=== PATIENT | male | born 1940 | race Caucasian/White ===

== ENCOUNTER 2016-08-31 14:44 | Observation (INO) | payer MEDICARE, OTHER ==
--- NOTE | ~2016-08-31 | OP ---
Record Of Operation [facility] [address] [place]. [address] NAME: SID PINEDA : 39 STATUS : DIS Aamir PAT#: [id number] AGE: 76 ADM/REG DATE : 08/31/16 MR#: [id number] REPORT SERV DATE: 09/01/16 DICTATED BY: DATE: REPORT STATUS : Draft TRANSCRIBED BY: MODL DATE: 09/01/16 DATE OF PROCEDURE: 09/01/2016 CHIEF COMPLAINT/REASON FOR STUDY: Atrial flutter. Written informed consent obtained. Please see chart for documentation. DESCRIPTION OF PROCEDURE: With the assistance of my Anesthesia colleagues, Mr. Pineda was sedated for the procedure. The transesophageal probe was placed with one attempt without complication. Saline 2D echocardiographic along with spectral and color Doppler images obtained. Following verification of no left atrial appendage thrombus, DC cardioversion was performed, 200 joules x1 with return to sinus rhythm. 1. Normal left ventricular systolic function with a visually estimated ejection fraction greater than 50%. 2. Normal right ventricular chamber size and systolic function. 3. Dilated left atrium without evidence of thrombus. 4. Dilated right atrium without evidence of thrombus. 5. The mitral valve appeared structurally normal. There was mild color flow evidence of mitral valve regurgitation. There was no evidence of mitral valve stenosis. 6. The tricuspid valve was structurally normal. There was mild tricuspid regurgitation. No evidence of tricuspid stenosis present. 7. The aortic valve was trileaflet, sclerotic, without evidence of significant . 8. The pulmonary valve was structurally normal with no evidence of regurgitation or stenosis. 9. The tricuspid valve leaflet was structurally normal with mild tricuspid regurgitation, and no evidence of stenosis present. 10.The left atrium was interrogated at multiple levels and depths. Doppler velocities were greater than 40 cm/second within the left atrial appendage. 11.There was no evidence of pericardial effusion. 12.The thoracic aorta was interrogated. There was severe atherosclerotic plaque noted in the thoracic aorta. IMPRESSION: Successful DC cardioversion. THUY/RADHA Laverne Velasco M.D. / [id number] CC: Kinsey Aparicio, MSN, VENTILATED RIB FITTER-BC OTTO LU
--- NOTE | ~2016-08-31 | HP ---
History And Physical [place] [id number] [facility] [place]. [address] NAME: SID LUX : 39 STATUS : ADM Aamir PAT#: [id number] AGE: 76 ADM/REG DATE : 08/31/16 MR#: [id number] REPORT SERV DATE: 08/31/16 DICTATED BY: DATE: REPORT STATUS : Draft TRANSCRIBED BY: MODRobe DATE: 08/31/16 DATE OF ADMISSION: 08/31/2016 PAPER GLUING OPERATOR: Dr. Dyer. INK TECHNICIAN: Dr. Webber. CHIEF COMPLAINT: Shortness of breath, weakness, and lightheadedness. HISTORY OF PRESENT ILLNESS: This is a very pleasant, 76-year-old, white male without any cardiac history including arrhythmias, who presents to the emergency room due to shortness of breath, weakness, and lightheadedness. The patient checked his pulse oximetry frequently and noticed that his heart rate was in the 150s at home. Therefore, because of all of his symptoms, he came into the emergency room. The patient denied any chest pain pressure, nausea, vomiting, diaphoresis, temperature, or any chills. The patient does state to have an extensive pulmonary history. He reports to have COPD, emphysema, and wear 4 L of oxygen via nasal cannula 09/10 at home. He also reports that he was on prednisone x1 week and he finished his dose on Sunday. He was taking it for wheezing. He reports that he has taken prednisone twice in the last two months along with Levaquin due to his respiratory issues. He denies any actual history of GI bleed. He does report to have had a very short run of nosebleed, last Sunday, he reports it was very minimal, but he did inform his nurse practitioner that works with Dr. Webber. The patient has also denied any palpitations. Currently, the patient denies any shortness of breath, chest pain, nausea, vomiting, or abdominal pain. He reports to feel a lot better since his heart rate has been beating a little slower. The patient denies any history of myocardial infarction, stroke, DVT, or pulmonary embolus. Also, the patient denies ever having an arrhythmia in the past. The patient denies any recent fevers or chills, palpitations, or syncopal episodes. He does state to have some orthopnea and sleeps with a BiPAP, but he reports he does not have sleep apnea. He just wears it due to his other multi-respiratory issues. PAST MEDICAL HISTORY: COPD, emphysema, hypertension, hyperlipidemia, diabetes, cholelithiasis, polyps, diverticulitis, anxiety. SURGICAL HISTORY: Appendectomy; inguinal hernia surgery; bilateral cataracts, the last one was about three weeks ago, which is left eye; vasectomy; and cholecystectomy. 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 He is and has three children. He used to smoke one and a half to two packs per day for 35 years. He quit in 1980. He reports to drink about two drinks of alcohol in a month occasionally. He denies any illicit drug use. FAMILY HISTORY: He denies any cardiac history for his mother or his father. REVIEW OF SYSTEMS: A 14-point review of systems was performed significant for HPI. No other contributory History And Physical [address] [address] NAME: SID LUX : 39 STATUS : ADM Aamir PAT#: [id number] AGE: 76 ADM/REG DATE : 08/31/16 MR#: [id number] REPORT SERV DATE: 08/31/16 DICTATED BY: DATE: REPORT STATUS : Draft TRANSCRIBED BY: MODRobe DATE: 08/31/16 diagnosis identified. ALLERGIES: NO KNOWN ALLERGIES. HOME MEDICATIONS: Lisinopril 5 mg p.o. every morning; Humulin R injection 15-18 units subcutaneously at bedtime; Glucophage 500 mg p.o. twice a day; Deltasone 20 mg p.o. daily x5 days, he reports the therapy was completed on 08/28/2016; ibuprofen 800 mg p.o. twice a day, p.r.n.; albuterol sulfate inhalation solution nebulizer, 3 mL inhalation four times a day p.r.n. shortness of breath and wheezing; ProAir HFA two puffs inhalation every 6 hours p.r.n.; Xanax 0.25-0.5 mg p.o. three times a day for anxiety; aspirin 81 mg p.o. twice a day; atorvastatin 10 mg p.o. at bedtime; Zithromax 250 mg p.o. daily on Sunday, Sunday, and Sunday, maintenance therapy; glucosamine chondroitin one tablet p.o. twice a day; Symbicort 160/4.5 inhaler, two puffs inhalation twice a day; multivitamin one tablet p.o. at bedtime; Ricky-Dur 200 mg p.o. twice a day; Spiriva Respimat 2.5 mcg per inhalation, one puff inhalation twice a day; Flomax 0.4 mg p.o. at bedtime; Flonase nasal spray 50 mcg per inhalation, one to two sprays nasally daily p.r.n.; sodium chloride [place] nasal spray, one to two sprays nasally at bedtime; sertraline 100 mg p.o. every morning; trazodone 50 mg p.o. at bedtime; triamterene/hydrochlorothiazide 37.5/25 one tablet p.o. every morning; testosterone 200 mg IM every 14 days, next injection due is 08/31/2016; Zovirax 5% ointment, one application topically daily p.r.n. PHYSICAL EXAMINATION: VITAL SIGNS: Blood pressure 103/67. Heart rate ranges from 70 to 120. Temperature 98.1. Respirations 16. O2 95% on 4 L nasal cannula. GENERAL: Cooperative, in no apparent distress. HEENT: Head normocephalic, anicteric. Normal EOM. PERRLA. No xanthelasma. Nares patent. Moist mucous membranes. NECK: Trachea midline. No thyromegaly, JVD or bruits. RESPIRATORY: Clear to auscultation bilaterally and coarse bases. CARDIOVASCULAR: Irregularly irregular. ABDOMEN: Soft, nontender, nondistended, normal bowel sounds auscultated throughout. No masses or organomegaly. EXTREMITIES: No peripheral edema. DP/PT and radial pulses palpable bilaterally. No clubbing or cyanosis. SKIN: Warm, dry and intact. Normal turgor. No pallor or cyanosis. NEURO/PSYCH: Alert, oriented x3 with no acute distress. Affect appropriate to current situation. DIAGNOSTIC DATA: Chest x-ray dated 08/31/2016 shows COPD changes in the lungs without acute cardiopulmonary abnormality identified. EKG on 08/31/2016 at 1333 shows atrial flutter at 150, left ventricular hypertrophy with QRS widening, QTc is 521. EKG on 08/31/2016 at 1355 shows atrial flutter at 102 with an incomplete right bundle branch block. commercial intelligence manager shows atrial flutter, ranging between 70-120 beats per minute. LABORATORY DATA: Sodium 139, potassium 4.8, BUN 29, creatinine 1.33, GFR 59. Glucose 96. Calcium 10.4, magnesium 2.0. White blood cells 12.2, hemoglobin 14.5, hematocrit 43.3, platelets 256. INR 1.0. Troponin 0.16. BNP 126. TSH 1.34. History And Physical [address] [address] NAME: SID LUX : 39 STATUS : ADM Aamir PAT#: [id number] AGE: 76 ADM/REG DATE : 08/31/16 MR#: [id number] REPORT SERV DATE: 08/31/16 DICTATED BY: DATE: REPORT STATUS : Draft TRANSCRIBED BY: MODL DATE: 08/31/16 ASSESSMENT AND PLAN: 1. New atrial flutter. CHADS-VASc score is 4. The patient reports to be feeling better due to the heart rate decreasing. The patient is on a Cardizem drip at 15 mg. We will keep the patient n.p.o. and order a BURT and a cardioversion for the morning. Also, the patient has been started on Eliquis downstairs at 10 mg x1 dose. We will start the patient on 5 mg p.o. twice a day. I have written prescriptions for that as well. The patient was instructed to report any sort of bleeding or dark tarry stools. After the BURT and cardioversion if the patient converts to sinus rhythm and recovers per BURT cardioversion protocol, discharge will be possible and the patient will be following up with his primary care provider in a week and also with space physicist, Dr. Dyer in three to four weeks. 2. Chronic obstructive pulmonary disease and emphysema. The patient reports that he wears 3.5 to 4 L at home. Recently, he was on prednisone and reports to feel better from that until he realized that his heart rate was going up and he had the increased shortness of breath at that time. The patient at this time reports to feel better with his breathing and symptom free with the lightheadedness and the weakness. 3. Hypertension. The patient's blood pressure appears to be stable at this time. We will continue to monitor. 4. Diabetes type 2. We will hold the patient's metformin along with the patient's home dose of any insulin and start the patient on a sliding scale level 1 while hospitalized. 5. Hyperlipidemia. The patient is on statin. 6. Anxiety. The patient does not appear to be anxious at this time. However, the patient does have Xanax on his home medication list which will be continued. EKS/MODL Gavin Go APN / [id number] CC: Kinsey Aparicio, MSN, DENTAL SERVICES DIRECTOR-OTTO LYMAN IV, M.D. James Marcum, M.D.
[2016-08-31 14:13] LABS: BASOPHILS 0.3 %; BASOPHILS ABSOLUTE 0.04 10/3/uL (0.0-0.16); EOSINOPHILS 3.9 %; EOSINOPHILS ABSOLUTE 0.47 10/3/uL (0.0-0.53); ER CBC TAT 0 Hrs 03 MinsN; HEMATOCRIT 43.3 % (40.0-51.0); HEMOGLOBIN 14.5 g/dL (13.6-17.8); IMMATURE GRANULOCYTES 0.5 %; IMMATURE GRANULOCYTES ABSOLUTE 0.06 10/3/uL (0.0-0.11); LYMPHOCYTES 11.2 %; LYMPHOCYTES ABSOLUTE 1.37 10/3/uL (0.67-4.30); MANUAL DIFF NO %; MEAN CORPUS HGB CONC 33.5 g/dL (32.0-36.0); MEAN CORPUSCULAR HEMOGLOB 30.8 pg (26.0-34.0); MEAN CORPUSCULAR VOLUME 91.9 fL (80-100); MEAN PLATELET VOLUME 9.2 fL (9.2-13.0); MONOCYTES 9.4 %; MONOCYTES ABSOLUTE 1.14 10/3/uL (0.21-1.20); NEUTROPHILS 74.7 %; NEUTROPHILS ABSOLUTE 9.11 10/3/uL (2.02-8.40); PLATELET COUNT 256 10/3/uL (150-400); RBC DISTRIBUTION WIDTH 13.6 % (12.0-16.0); RED CELL COUNT 4.71 10/6/uL (4.7-6.1); WHITE BLOOD CELLS 12.2 10/3/uL (4.5-10.5)
[2016-08-31 14:27] LABS: PARTIAL THROMBO TIME 28.6 SEC (22.5-37.2); PROTIME (NOT ORD) 12.7 SEC (12.0-14.5)
[2016-08-31 14:34] LABS: BUN (BLOOD UREA NITROGEN) 29 MG/DL (6-23); CALCIUM, SERUM 10.4 MG/DL (8.5-10.4); CHEST PAIN PROFILE TAT 0 Hrs 24 Mins; CHLORIDE, SERUM 102 MMOL/L (96-112); CO2 (CARBON DIOXIDE) 30 MMOL/L (24-34); CREATININE 1.33 MG/DL (0.70-1.30); GFR AFRICAN AMERICAN 59 ML/MIN (>=60); GFR NON AFRICAN AMERICAN 51 ML/MIN (>=60); GLUCOSE, SERUM 96 MG/DL (60-99); POTASSIUM, SERUM 4.8 MMOL/L (3.5-5.3); SODIUM, SERUM 139 MMOL/L (135-148); TROPONIN I 0.16 NG/ML (<0.05)
[2016-08-31] MEDS ORDERED: PRIN10 PO (15:22)
[2016-08-31] MEDS ORDERED: GLUCPH PO (15:24)
[2016-08-31] MEDS ORDERED: HUMULIN R1 ML SC (15:24)
[2016-08-31] MEDS ORDERED: P20 PO (15:25)
[2016-08-31] MEDS ORDERED: IBU800 PO (15:25)
[2016-08-31] MEDS ORDERED: PROAIR HFA INH (15:26)
[2016-08-31] MEDS ORDERED: ALBUTEROL0.083 % INH (15:26)
[2016-08-31] MEDS ORDERED: X25 PO (15:27)
[2016-08-31] MEDS ORDERED: LIPITOR10 PO (15:28)
[2016-08-31] MEDS ORDERED: ZITH250 PO (15:28)
[2016-08-31] MEDS ORDERED: HALF81 PO (15:28)
[2016-08-31] MEDS ORDERED: GLUCCHONDR PO (15:29)
[2016-08-31] MEDS ORDERED: PULRESP.5 INH (15:29)
[2016-08-31] MEDS ORDERED: MULTIVIT/MIN PO (15:29)
[2016-08-31] MEDS ORDERED: T200 PO (15:30)
[2016-08-31] MEDS ORDERED: SPIRIVA RESPIMAT INH (15:30)
[2016-08-31] MEDS ORDERED: FLOMAX4 PO (15:31)
[2016-08-31] MEDS ORDERED: FLONASE NAS (15:31)
[2016-08-31] MEDS ORDERED: OCEAN NAS (15:32)
[2016-08-31] MEDS ORDERED: ZOL100 PO (15:32)
[2016-08-31] MEDS ORDERED: MAX25 PO (15:33)
[2016-08-31] MEDS ORDERED: TRAZ100 PO (15:33)
[2016-08-31] MEDS ORDERED: TESTOSTERONE 200 MG IM (15:35)
[2016-08-31] MEDS ORDERED: ZOVIRAX 5% TOP (15:37)
[2016-08-31 18:45] LABS: ALBUMIN 3.7 G/DL (3.5-5.0); ALKALINE PHOSPHATASE 73 U/L (45-117); DIRECT BILIRUBIN 0.2 MG/DL (0.0-0.4); FREE T4 1.22 NG/DL (0.76-1.46); INDIRECT BILIRUBIN(NOT ORDER) 0.9 MG/DL (0.1-0.9); SGOT(AST) 34 U/L (5-40); SGPT(ALT) 52 U/L (5-65); TOTAL BILIRUBIN 1.1 MG/DL (0-1.2); TOTAL PROTEIN 7.4 G/DL (6.0-8.5)
[2016-12-11] MEDS ORDERED: BROVANA15 MCG INH (12:36)
[2016-12-11] MEDS ORDERED: ALBUTEROL0.083 % INH (12:50)
[2016-12-11] MEDS ORDERED: HYDROCHLOROT50 MG PO (12:52)
[2016-12-11] MEDS ORDERED: ZYRTEC ALLGY10 MG PO (12:52)
[2016-12-11] MEDS ORDERED: REFRESH OPH (12:53)
[2016-12-11] MEDS ORDERED: FLONASE NAS (12:54)
[2016-12-11] MEDS ORDERED: MUCINEX600 MG PO (12:56)
[2016-12-13] MEDS ORDERED: STERAPDS12 (15:43)
[2016-12-13] MEDS ORDERED: L40 PO (15:57)
[2016-12-13] MEDS ORDERED: KLOR-CON M2020 MEQ PO (16:01)
== END 2016-09-01 18:24 | disposition home or self-care (01) ==
LOC: ER 14:44 → CDU1 15:30
PROVIDERS: Emergency Medicine
DX: I48.3 Typical atrial flutter (principal); I08.1 Rheumatic disorders of both mitral and tricuspid valves; J43.9 Emphysema, unspecified; I10 Essential (primary) hypertension; E78.5 Hyperlipidemia, unspecified; E11.9 Type 2 diabetes mellitus without complications; F41.9 Anxiety disorder, unspecified; Z90.49 Acquired absence of other specified parts of digestive tract; Z98.41 Cataract extraction status, right eye; Z98.42 Cataract extraction status, left eye; Z98.52 Vasectomy status; Z98.890 Other specified postprocedural states; Z87.891 Personal history of nicotine dependence
CPT/HCPCS: 71010; 80048; 80076; 82962; 83735; 83880; 84439; 84443; 84484; 85025; 85610; 85730; 92960; 93005; 93312; 93320; 93325; 94640; 96374; 96375; 96376; 99285; A9270-GY; G0378; J0153

== ENCOUNTER 2016-11-28 11:50 | Inpatient (IN) | payer MEDICARE, OTHER ==
[~2016-11-28] VITALS: Ht 180.3 cm; Wt 73.5 kg
--- NOTE | ~2016-11-28 | HP ---
History And Physical [place] [address] [place]. [address] NAME: SID LUX : 39 STATUS : ADM Aamir PAT#: [id number] AGE: 76 ADM/REG DATE : 11/28/16 MR#: [id number] REPORT SERV DATE: 11/28/16 DICTATED BY: FAREED CHURCHILL DATE: 11/28/16 REPORT STATUS : Draft TRANSCRIBED BY: RADHA DATE: 11/28/16 DATE OF ADMISSION: 11/28/2016 CARDIOLOGISTS: Laverne Velasco M.D. and Chapin Dyer M.D. LAUNCH LEADER: Aris Webber M.D. HISTORY OF PRESENT ILLNESS: This is a 76-year-old male who comes in for shortness of breath. The patient has a history of COPD, chronic respiratory failure, on 4 L of oxygen all the time. According to the daughter, he is on stage IV COPD. The patient has been following with Dr. Webber and is reluctant to do a bronchoscopy on him he does not have much pulmonary reserve and is going to be risky. The patient last saw Dr. Webber about four months ago and there was a CAT scan ordered recently. Meanwhile, the patient was recently admitted on August for a new-onset atrial flutter. The patient underwent cardioversion, it was successful, and he was sent home with new medications including Cardizem and Eliquis. The patient said that his heart rate remained stable, but he is not sure if the new medications caused him to start feeling worse respiratory de [place] rosa. He noted that he has been having increasing shortness of breath, increasing dyspnea on exertion and hemoptysis. It got worse in the last week wherein he could not even walk across the hallway of his home without getting tired. He kept on checking his pulse oximeter and it ranges between 80-90, and he said this is pretty much what he gets even before the cardioversion. The patient woke up yesterday with a left lower quadrant pain. He tried to get a doctor's appointment and he finally got one with Dr. Velasco and noted that the patient was saturating 88% on 4 L. She then called me for direct admit. She said that cardiology de la rosa, he looks stable, and we can consult her if we need her. The patient denies any fever. He admits to having some chills. No sweats. There is decrease in his hemoptysis, but is still present from time to time. Some cough. There is no diarrhea. He had a bowel movement yesterday, which looks normal and no bleeding. No urinary changes. No near syncopal or syncopal episode. No new rashes or joint pains. REVIEW OF SYSTEMS: The rest of the 14-point review of systems is negative except as above. PAST MEDICAL HISTORY: Includes stage IV COPD, hypertension, hyperlipidemia, diabetes, cholelithiasis, diverticulitis, anxiety, appendectomy, inguinal herniorrhaphy, bilateral cataract surgery, vasectomy, and cholecystectomy. ALLERGIES: HE HAS NO KNOWN DRUG ALLERGIES. MEDICATIONS: Include albuterol, diltiazem, Eliquis, finasteride, Humulin N and R, hydrochlorothiazide, Lipitor, lisinopril, Onglyza, Proventil, Questran, Spiriva, Symbicort, testosterone, theophylline, trazodone, Xanax, Zithromax. FAMILY HISTORY: Father has diabetes and hypertension. Mother had colon cancer. Sister had COPD. 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 He used to smoke a pack and a half [facility] [address] [address] NAME: SID LUX : 39 STATUS : ADM Aamir PAT#: [id number] AGE: 76 ADM/REG DATE : 11/28/16 MR#: [id number] REPORT SERV DATE: 11/28/16 DICTATED BY: FAREED CHURCHILL DATE: 11/28/16 REPORT STATUS : Draft TRANSCRIBED BY: RADHA DATE: 11/28/16 to two packs a day for 35 years, quit in 1980. He drinks about two drinks of alcohol per month. No recreational drug use. PHYSICAL EXAMINATION: GENERAL: The patient is alert and oriented x3, in mild cardiorespiratory distress. VITAL SIGNS: His vital signs include a temperature of 98, respiration of 18, heart rate of 99, blood pressure of 117/57, saturating 92% on 4 L. NECK: He has supple neck. No JVD or carotid bruits. No lymphadenopathy. [place] conjunctivae. Anicteric sclerae. No pharyngeal erythema. LUNGS: He has fair to poor air entry. Occasional wheezing. No crackles. HEART: Regular rate and rhythm. No murmurs. ABDOMEN: Positive bowel sounds. Soft. There is tenderness in the left lower quadrant area. No rebound, guarding, or masses. EXTREMITIES: Full pulses. No edema. NEUROLOGIC: Nonlocalizing. ASSESSMENT: 1. Kytqm-rg-mctzkri hypoxic respiratory failure. 2. Chronic obstructive pulmonary disease. 3. Right lung mass with hemoptysis. 4. Recent cardioversion for atrial flutter. 5. Left lower quadrant tenderness with history of diverticulitis. 6. Hypertension. 7. Diabetes. 8. Chronic kidney disease 3. PLAN: The patient H and P points to increase in hypoxic respiratory failure, not clear if this is a COPD exacerbation or a mucus plug, as the CAT scan yesterday shows that he has mucous plugging in the right lower lobe. We will place him on oxygen, bronchodilator, steroids, and we will get Pulmonary to consult. We will get cultures for now. Hold of the antibiotics until we get a CAT scan of the abdomen and pelvis. Hold of the Eliquis as discussed with Cardiology. I will defer to Pulmonary if he will need a bronchoscopy. I suspect that he would be at high risk for this. We will check the hemoglobin A1c. Restart his blood pressure and diabetic medications. This has been explained to the patient in front of the daughter and [id number], and they agreed and understood the plan. GWYN/RADHA Fareed Churchill M.D. / [id number] CC: Fareed Churchill M.D. History And Physical [address] [address] NAME: SID LUX : 39 STATUS : ADM Aamir PAT#: [id number] AGE: 76 ADM/REG DATE : 11/28/16 MR#: [id number] REPORT SERV DATE: 11/28/16 DICTATED BY: FAREED CHURCHILL DATE: 11/28/16 REPORT STATUS : Draft TRANSCRIBED BY: RADHA DATE: 11/28/16 TABITHA
--- NOTE | ~2016-11-28 | DS ---
Discharge Summary [facility] [address] [place]. [address] NAME: SID LUX : 39 STATUS : ADM IN [facility]#: [id number] AGE: 76 ADM/REG DATE : 11/28/16 MR#: [id number] REPORT SERV DATE: 12/01/16 DICTATED BY: FAREED CHURCHILL DATE: 12/01/16 REPORT STATUS : Draft TRANSCRIBED BY: RADHA DATE: 12/01/16 ADMISSION DATE: 11/28/2016 DISCHARGE DATE: PRISON PSYCHIATRIST: Aris Webber M.D. DRILL PRESS SET UP OPERATOR RADIAL: Laverne Velasco M.D. FINAL DIAGNOSES: 1. Acute on chronic hypoxic respiratory failure. 2. Chronic obstructive pulmonary disease. 3. Mucus plugging with hemoptysis. 4. Acute diverticulitis. 5. Hypertension. 6. History of atrial flutter. 7. Chronic kidney disease, 3. 8. Diabetes. DIAGNOSTIC EXAM: CAT scan without contrast done the day prior to admission showing COPD, focal mass in the right lower lobe is slightly decreased in size measuring 3.3 x 3.2 cm, did not have an abnormal radiotracer uptake on the PET examination in May 2016, likely representing mucous plugging. Slightly increased atelectasis is present in the right lung base. No significant new lung lesions. No adenopathy. CAT scan of the abdomen and pelvis showing small focus of inflammatory change consistent with uncomplicated diverticulitis in the mid descending colon. HOSPITAL COURSE: Please refer to the H and P done by myself dated on 11/28/2016. Briefly, this is a 76-year-old male who comes in for shortness of breath. He has a history of COPD, chronic respiratory failure at 4 L of oxygen all the time. According to the daughter, he is on stage IV COPD and is following up with Dr. Webber. The patient also at the recent cardioversion done for atrial flutter and was placed on several medications. According to the patient, this made him tired, having hemoptysis, and increasing shortness of breath. He had decrease in exercise tolerance. Finally, he went to Dr. Velasco and the patient was referred for a direct admit. The patient luckily already had a CAT scan which shows the above findings, but on his physical exam, he is also having some tenderness in the left lower quadrant area. We got Pulmonary involved, they did a bronch. I was told that the patient has bronchiectasis, but no mass, no bleeding. They got some lavage and mucus out and that was negative for fungus, AFB, and Gram stain as of present time. The patient got clearance from pulmonary point of view. Meanwhile, the CAT scan of the abdomen shows an acute diverticulitis. He started the patient on Levaquin and Flagyl, and there was some relief in his symptoms. The patient will now be discharged home with the above diagnosis. He is going to follow up with his PCP, Wenceslao Chow DO, [facility] primary care doctor. Follow up with Dr. Webber as scheduled, and follow up with Dr. Velasco as scheduled. The patient will be going home on the following medications: Discharge Summary [address] [address] NAME: SID LUX : 39 STATUS : ADM IN [facility]#: [id number] AGE: 76 ADM/REG DATE : 11/28/16 MR#: [id number] REPORT SERV DATE: 12/01/16 DICTATED BY: FAREED CHURCHILL DATE: 12/01/16 REPORT STATUS : Draft TRANSCRIBED BY: RADHA DATE: 12/01/16 1. Lipitor 40 mg at bedtime. 2. Zithromax 250 mg three times a week, which he will start after he finishes antibiotics for the diverticulitis. 3. Onglyza 5 mg a day. 4. Cartia XT 120 mg a day. 5. Proscar 5 mg a day. 6. Humulin R three times a day p.r.n. 7. Novolin N 10 units before breakfast, 14 to 18 units at bedtime. 8. Levaquin 750 mg once a day for 10 days. 9. Lisinopril 10 mg a day. 10.Multivitamin once a day. 11.Zoloft 100 mg a day. 12.Flomax 0.4 mg a day. 13.Theophylline 200 mg twice a day. 14.Spiriva one puff twice a day. 15.Flagyl 500 mg t.i.d. for 10 days. 16.Albuterol two puffs q.6 hours p.r.n. 17.Pulmicort 0.5 mg twice a day. 18.Xanax 0.25 to 0.5 mg three times a day p.r.n. anxiety. 19.Trazodone 100 mg at bedtime. 20.Eliquis 5 mg twice a day. 21.Testosterone every 21 days per his PCP. The patient is saying that the changes in his cardiac medications have caused him to have some shortness of breath. I advised him with regard to this that I do not think that Lipitor is doing any problems. I advised him that the Eliquis will be continued if there are no signs of bleeding as his H and H have been stable, and this is recommended by Cardiology and he can discuss it with his cardiologists and PCP if they need to make necessary adjustments on his other medications. TIME SPENT: 40 minutes. The patient understood. GWYN/RADHA Fareed Churchill M.D. / [id number] CC: Milind Gomez DO
--- NOTE | ~2016-11-28 | CN ---
Consultation Report [facility] [address] [place]. [address] NAME: SID PINEDA : 38 STATUS : ADM Aamir PAT#: [id number] AGE: 76 ADM/REG DATE : 11/28/16 MR#: [id number] REPORT SERV DATE: 11/29/16 DICTATED BY: BRYAN KIM DATE: 11/29/16 REPORT STATUS : Draft TRANSCRIBED BY: MODRobe DATE: 11/29/16 CONSULTATION DATE OF CONSULTATION: Thank you for the opportunity to consult on Mr. Pineda. 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 HISTORY OF PRESENT ILLNESS: Mr. Pineda is a 76-year-old man with a history of very severe COPD, on chronic supplemental oxygenation and bronchiectasis. He has very severe obstruction with an FEV1 around 15% of predicted. He has had problems with worsening hemoptysis. Started where he has had some intermittent very low-grade small amount of hemoptysis mixed with sputum to where he developed quite significant coughing with almost half a cupful of bright red blood. This seems to have eased up the last couple of days and today he has had a less of that once again. Nonetheless, he has had more shortness of breath, more coughing, though no fever, chills, or night sweats. PAST MEDICAL HISTORY: Significant for hypertension, hypercholesterolemia, diabetes, and very severe chronic obstructive pulmonary disease as noted above. ALLERGIES: HE HAS NO KNOWN DRUG ALLERGIES. SOCIAL HISTORY: Significant for a pack and a half a day smoking for 35 years, though he quit in 1980. He drinks rarely. No illicit drug use. FAMILY HISTORY: Significant for COPD and smoking-related lung disease as well as hypertension. REVIEW OF SYSTEMS: Review of 10 systems was performed and is positive for what was noted above. PHYSICAL EXAMINATION: GENERAL: He is awake and alert. No obvious distress, though he does become tachypneic easily. HEENT: Normocephalic, atraumatic. NECK: Supple. No lymphadenopathy. No JVD. CHEST: Symmetric with good expansion bilaterally. LUNGS: Lungs have bilateral rhonchi. CARDIOVASCULAR: He has S1 and S2, which are regular in rate and rhythm. ABDOMEN: Benign. He has no edema. No clubbing. No cyanosis. ASSESSMENT AND PLAN: Acute exacerbation of chronic obstructive pulmonary disease. He has very severe chronic obstructive pulmonary disease with bronchiectasis with an acute Consultation Report [address] [place]. [address] NAME: SID PINEDA : 38 STATUS : ADM Aamir PAT#: [id number] AGE: 76 ADM/REG DATE : 11/28/16 MR#: [id number] REPORT SERV DATE: 11/29/16 DICTATED BY: BRYAN KIM DATE: 11/29/16 REPORT STATUS : Draft TRANSCRIBED BY: RADHA DATE: 11/29/16 exacerbation, doing better on steroids. He will remain on his current medical therapy, and we have planned a bronchoscopy both for localization of the site of bleeding as well as for deep culture. He obviously is at increased risk for complications, though he tolerated a recent transesophageal echocardiogram with no complications and no respiratory problems, so we feel he should be safe for that. I did discuss the case briefly with the anesthesiologist in the endoscopy suite and we will plan on intubation even though which should be a fairly quick procedure. We will continue to follow him during his hospitalization. It is a pleasure to participate in his care with you. Please do not hesitate to contact me if I could be of any further assistance. AMBER/RADHA Bryan Kim M.D. / [id number] CC: Toni James M.D.
[~2016-11-28 11:50] MED LIST: ALBUTEROL0.083 % INH; FLOMAX4 PO; FLONASE NAS; GLUCCHONDR PO; GLUCPH PO; HALF81 PO; HUMULIN R1 ML SC; IBU800 PO; LIPITOR10 PO; MAX25 PO; MULTIVIT/MIN PO; OCEAN NAS; P20 PO; PRIN10 PO; PROAIR HFA INH; PULRESP.5 INH; SPIRIVA RESPIMAT INH; T200 PO; TESTOSTERONE 200 MG IM; TRAZ100 PO; X25 PO; ZITH250 PO; ZOL100 PO; ZOVIRAX 5% TOP
[2016-11-28] MEDS ORDERED: CARTIA XT120 MG/24 PO (14:39)
[2016-11-28] MEDS ORDERED: ELIQUIS 5 MG TAB5 MG PO (14:39)
[2016-11-28] MEDS ORDERED: PROSCAR5 PO (14:40)
[2016-11-28] MEDS ORDERED: ONGLYZA5 MG PO (14:44)
[2016-11-28] MEDS ORDERED: INSNOVN SC (14:47)
[2016-11-28] MEDS ORDERED: HUMULIN R1 ML SC (14:49)
[2016-11-28] MEDS ORDERED: TESTOST CYP100 MG/ML IM (14:52)
[2016-11-28] MEDS ORDERED: PROVHFA INH (14:54)
[2016-11-28] MEDS ORDERED: ALBUTEROL0.083 % INH (15:01)
[2016-11-28 16:02] LABS: ALLENS TEST Pos; BE (BASE EXCESS) 7.4 MEQ/L (0 +/- 2.5); CARBOXYHEMOGLOBIN 0.2 % (0-3); DEVICE NC; HCO3 (ACTUAL BICARBONATE) 33.8 MEQ/L (23-27); HEMOBLOGIN CONTENT 11.4 G/DL (14-18); INSTRUMENT SERIAL # 35151; METHEMOGLOBIN 0.4 % (0-3); O2 CONTENT 15.3 VOL% (18-24); PCO2 (CO2 TENSION) 57 MMHG (35-45); PO2 (O2 TENSION) 80 MMHG (79-93); SAMPLE Arterial; pH 7.39 (7.37-7.43)
[2016-11-28 16:37] LABS: BASOPHILS 0.2 %; BASOPHILS ABSOLUTE 0.02 10/3/uL (0.0-0.16); EOSINOPHILS 4.1 %; EOSINOPHILS ABSOLUTE 0.37 10/3/uL (0.0-0.53); HEMATOCRIT 33.6 % (40.0-51.0); HEMOGLOBIN 10.6 g/dL (13.6-17.8); IMMATURE GRANULOCYTES 0.2 %; IMMATURE GRANULOCYTES ABSOLUTE 0.02 10/3/uL (0.0-0.11); LYMPHOCYTES 10.8 %; LYMPHOCYTES ABSOLUTE 0.98 10/3/uL (0.67-4.30); MANUAL DIFF NO %; MEAN CORPUS HGB CONC 31.5 g/dL (32.0-36.0); MEAN CORPUSCULAR HEMOGLOB 29.9 pg (26.0-34.0); MEAN CORPUSCULAR VOLUME 94.9 fL (80-100); MONOCYTES 9.6 %; MONOCYTES ABSOLUTE 0.87 10/3/uL (0.21-1.20); NEUTROPHILS 75.1 %; NEUTROPHILS ABSOLUTE 6.83 10/3/uL (2.02-8.40); PLATELET COUNT 214 10/3/uL (150-400); RBC DISTRIBUTION WIDTH 14.1 % (12.0-16.0); RED CELL COUNT 3.54 10/6/uL (4.7-6.1); WHITE BLOOD CELLS 9.1 10/3/uL (4.5-10.5)
[2016-11-28 16:50] LABS: INTERNATIONAL NORMAL RATI 1.4 UNITS (-); PARTIAL THROMBO TIME 37.5 SEC (22.5-37.2)
[2016-11-28 16:52] LABS: D-DIMER QUANTITATIVE 0.74 ug/mLFEU (< 0.50)
[2016-11-28 16:54] LABS: A/G RATIO 0.8 (0.7-1.9); ALBUMIN 3.2 G/DL (3.5-5.0); ALKALINE PHOSPHATASE 73 U/L (45-117); BUN (BLOOD UREA NITROGEN) 29 MG/DL (6-23); CALCIUM, SERUM 9.3 MG/DL (8.5-10.4); CHLORIDE, SERUM 100 MMOL/L (96-112); CO2 (CARBON DIOXIDE) 36 MMOL/L (24-34); CREATININE 1.38 MG/DL (0.70-1.30); GFR AFRICAN AMERICAN 57 ML/MIN (>=60); GFR NON AFRICAN AMERICAN 49 ML/MIN (>=60); GLOBULIN 3.8 G/DL (2.5-4.1); GLUCOSE, SERUM 194 MG/DL (60-99); POTASSIUM, SERUM 4.1 MMOL/L (3.5-5.3); SGOT(AST) 21 U/L (5-40); SGPT(ALT) 28 U/L (5-65); SODIUM, SERUM 141 MMOL/L (135-148); THEOPHYLLINE 8.1 MCG/ML (8.0-15.0); TOTAL BILIRUBIN 1.1 MG/DL (0-1.2)
[2016-11-28 16:58] LABS: PROTIME (NOT ORD) 16.9 SEC (12.0-14.5)
[2016-11-28 17:25] LABS: PROCALCITONIN 0.12 ng/mL (<0.5)
[2016-11-28 23:18] LABS: ASCORBIC ACID (UR NOT ORDER) NEG (NEG); BILIRUBIN, URINE NEGATIVE (NEG); KETONE, URINE NEGATIVE (NEG); LEUKOCYTE ESTERASE(NOT OR NEG (NEG); WBC (NOT ORDERED) (RFLEX) 1 (0-5)
[2016-11-29 10:56] LABS: PARTIAL THROMBO TIME 34.2 SEC (22.5-37.2)
[2016-11-29 18:03] LABS: BD FL LYMPH (NOT ORD) 9 %; BD FL SOURCE (NOT ORD) BAL; BF BASO (NOT OF) 0 %; BF LARGE MONONUCLEAR 30 %; BODY FLUID EOS (NOT ORD) 0 %; BODY FLUID SEG (NOT ORD) 61 %
[2016-11-29 19:12] LABS: BF TOTAL CELL CT (NOT ORD 196 /MM3; BODY FLUID RBC (NOT ORD) 7000 /MM3
[2016-11-30 06:10] LABS: BASOPHILS 0.1 %; BASOPHILS ABSOLUTE 0.01 10/3/uL (0.0-0.16); EOSINOPHILS 0.2 %; EOSINOPHILS ABSOLUTE 0.02 10/3/uL (0.0-0.53); HEMATOCRIT 31.1 % (40.0-51.0); HEMOGLOBIN 9.9 g/dL (13.6-17.8); IMMATURE GRANULOCYTES 0.4 %; IMMATURE GRANULOCYTES ABSOLUTE 0.03 10/3/uL (0.0-0.11); LYMPHOCYTES 12.3 %; MEAN CORPUS HGB CONC 31.8 g/dL (32.0-36.0); MEAN CORPUSCULAR HEMOGLOB 29.6 pg (26.0-34.0); MEAN CORPUSCULAR VOLUME 92.8 fL (80-100); MEAN PLATELET VOLUME 9.1 fL (9.2-13.0); MONOCYTES ABSOLUTE 1.06 10/3/uL (0.21-1.20); NEUTROPHILS ABSOLUTE 6.04 10/3/uL (2.02-8.40); PLATELET COUNT 219 10/3/uL (150-400); RBC DISTRIBUTION WIDTH 13.7 % (12.0-16.0); RED CELL COUNT 3.35 10/6/uL (4.7-6.1); WHITE BLOOD CELLS 8.2 10/3/uL (4.5-10.5)
[2016-11-30 06:11] LABS: MANUAL DIFF NO %
[2016-11-30 06:24] LABS: BUN (BLOOD UREA NITROGEN) 34 MG/DL (6-23); CALCIUM, SERUM 9.7 MG/DL (8.5-10.4); CHLORIDE, SERUM 103 MMOL/L (96-112); CO2 (CARBON DIOXIDE) 36 MMOL/L (24-34); CREATININE 1.15 MG/DL (0.70-1.30); GFR AFRICAN AMERICAN 71 ML/MIN (>=60); GFR NON AFRICAN AMERICAN 61 ML/MIN (>=60); GLUCOSE, SERUM 96 MG/DL (60-99); SODIUM, SERUM 141 MMOL/L (135-148)
[2016-12-01 06:26] LABS: BASOPHILS 0.1 %; BASOPHILS ABSOLUTE 0.01 10/3/uL (0.0-0.16); EOSINOPHILS 0.6 %; EOSINOPHILS ABSOLUTE 0.05 10/3/uL (0.0-0.53); HEMATOCRIT 30.4 % (40.0-51.0); IMMATURE GRANULOCYTES 0.4 %; IMMATURE GRANULOCYTES ABSOLUTE 0.03 10/3/uL (0.0-0.11); LYMPHOCYTES 12.9 %; LYMPHOCYTES ABSOLUTE 1.03 10/3/uL (0.67-4.30); MEAN CORPUS HGB CONC 32.9 g/dL (32.0-36.0); MEAN CORPUSCULAR VOLUME 91.3 fL (80-100); MEAN PLATELET VOLUME 9.1 fL (9.2-13.0); MONOCYTES 12.8 %; MONOCYTES ABSOLUTE 1.02 10/3/uL (0.21-1.20); NEUTROPHILS 73.2 %; NEUTROPHILS ABSOLUTE 5.85 10/3/uL (2.02-8.40); PLATELET COUNT 217 10/3/uL (150-400); RED CELL COUNT 3.33 10/6/uL (4.7-6.1)
[2016-12-01 06:34] LABS: MANUAL DIFF NO %
[2016-12-01] MEDS ORDERED: MULTIVITAMI1 PO (09:50)
[2016-12-01] MEDS ORDERED: FLAG500TAB PO (09:55)
[2016-12-01] MEDS ORDERED: LEVAQUIN750 MG PO (09:56)
[2016-12-01] MEDS ORDERED: FLOMAX4 PO (09:59)
== END 2016-12-01 16:13 | disposition home or self-care (01) | DRG 167 ==
LOC: ENRESERVDT → ENRESERV → ENRESERVTM → 5NO 13:51
PROVIDERS: Internal Medicine; Internal Medicine Pulmonary Disease
PROC: 0B9F8ZX Drainage of Right Lower Lung Lobe, Via Natural or Artificial Opening Endoscopic, Diagnostic (ICD-10-PCS; 2016-11-29)
PROC: 0B9D8ZX Drainage of Right Middle Lung Lobe, Via Natural or Artificial Opening Endoscopic, Diagnostic (ICD-10-PCS; principal; 2016-11-29 16:17)
DX: J96.21 Acute and chronic respiratory failure with hypoxia (principal); J44.1 Chronic obstructive pulmonary disease with (acute) exacerbation; E11.22 Type 2 diabetes mellitus with diabetic chronic kidney disease; Z99.81 Dependence on supplemental oxygen; J44.9 Chronic obstructive pulmonary disease, unspecified; K57.92 Diverticulitis of intestine, part unspecified, without perforation or abscess without bleeding; N18.3 Chronic kidney disease, stage 3 (moderate); I12.9 Hypertensive chronic kidney disease with stage 1 through stage 4 chronic kidney disease, or unspecified chronic kidney disease; Z79.01 Long term (current) use of anticoagulants; Z79.4 Long term (current) use of insulin; E78.00 Pure hypercholesterolemia, unspecified
CPT/HCPCS: 36600; 74176; 80048; 80053; 80198; 81001; 82272; 82805; 82962; 83036; 84145; 85025; 85049; 85379; 85610; 85730; 87015; 87040; 87045; 87046; 87046-59; 87070; 87102; 87116; 87205; 87899; 87899-59; 88112; 89051; 93005; 94640; A9270-GY; J0330